=== PATIENT | female | born 1965 | race Caucasian/White ===

== ENCOUNTER 2018-12-31 01:39 | Inpatient (IN) ==
--- NOTE | 2018-12-22 08:36 | EKG Report ---
Test Performed on : 12/22/2018 08:32:23 AM Test Reason : pat Blood Pressure : / mmHG Vent. Rate : 085 BPM Atrial Rate : 085 BPM P-R Int : 142 ms QRS Dur : 082 ms QT Int : 380 ms P-R-T Axes : 064 057 165 degrees QTc Int : 452 ms Normal sinus rhythm. Moderate voltage criteria for LVH, may be normal variant T wave abnormality, consider inferolateral ischemia Abnormal ECG No previous ECGs available Unconfirmed Result
[2018-12-22 09:09] LABS: HEMATOCRIT 49.5 % (37.0-47.0); HEMOGLOBIN 15.8 g/dL (12.0-16.0); MCH 29.9 PG (27-31); MCHC 31.9 g/dL (33-37); MCV 93.8 FL (81-99); MPV 9.8 FL (7.4-10.4); RBC 5.28 XMIL (4.2-5.4); RDW 13.9 % (11.5-14.5); WBC 14.18 X1000 (4.8-10.8)
[2018-12-22 09:57] LABS: AGAP 16; BUN 15 mg/dL (8-22); CHLORIDE 100 mmol/L (98-107); COSMO 282; CREATININE 0.8 mg/dL (0.5-0.9); GLUCOSE 128 mg/dL (70-104); POTASSIUM 4.5 mmol/L (3.5-5.1); SODIUM 140 mmol/L (136-145); TCO2 24 mmol/L (25-35)
[2018-12-31] MEDS ORDERED: KEFZOL 1 GM/D5W 1 GM/50 ML IVPB ONE (05:41)
[2018-12-31] MEDS ORDERED: LR 1,000 ML ONE (05:41)
[2018-12-31] MEDS ORDERED: NITROGLYCERIN 50 MG/D5W 50 MG/250 ML IV.SOLN ONE (06:30)
[2018-12-31] MEDS ORDERED: XYLOCAINE 1%/EPI 1:100,000 ONE (06:33)
[2018-12-31] MEDS ORDERED: HEPARIN ONE (06:36)
[2018-12-31] MEDS ORDERED: XYLOCAINE 1% ONE (06:36)
[2018-12-31] MEDS ORDERED: NS 500 ML ONE (06:36)
[2018-12-31] MEDS ORDERED: KEFZOL ONE (06:36)
[2018-12-31] MEDS ORDERED: NS 1,000 ML ONE (06:37)
[2018-12-31] MEDS ORDERED: VERSED ONE (06:41)
[2018-12-31] MEDS ORDERED: QUELICIN (DOSE) ONE (06:42)
[2018-12-31] MEDS ORDERED: DIPRIVAN 1% ONE (06:43)
[2018-12-31] MEDS ORDERED: XYLOCAINE-MPF 2% ONE (06:57)
[2018-12-31] MEDS ORDERED: NEO-SYNEPHRINE ONE (06:57)
[2018-12-31] MEDS ORDERED: ZEMURON ONE (07:05)
[2018-12-31] MEDS ORDERED: HEPARIN (DOSE) ONE (07:32)
[2018-12-31] MEDS ORDERED: FENTANYL ONE (08:11)
[2018-12-31] MEDS ORDERED: DECADRON ONE (08:13)
[2018-12-31] MEDS ORDERED: ZOFRAN ONE (08:13)
[2018-12-31] MEDS ORDERED: ROBINUL ONE (08:15)
[2018-12-31] MEDS ORDERED: NEOSTIGMINE ONE (08:17)
[2018-12-31] MEDS ORDERED: DUONEB (A & A) INH ONE (08:58)
[2018-12-31] MEDS ORDERED: OFIRMEV 1000 MG/ISOTONIC SOLN 1,000 MG/100 ML BOTTLE ONE (09:23)
[2018-12-31] MEDS ORDERED: ZOFRAN IV PRN (10:32)
[2018-12-31] MEDS ORDERED: ASPIRIN PO SCH (10:32)
[2018-12-31] MEDS: LR 1,000 ML IV SCH ×2 (10:35→23:54)
[2018-12-31] MEDS: ASPIRIN PO SCH (11:35)
[2018-12-31] MEDS: ULTRAM PO PRN ×2 (11:35→21:05)
[2018-12-31] MEDS: CRESTOR PO SCH (11:35)
--- NOTE | 2018-12-31 14:23 | OPERATIVE NOTE ---
PROCEDURE DATE: 12/31/2018 PROCEDURE PERFORMED: Left carotid endarterectomy with patch angioplasty. SURGEON: German Cortes MD. VB NET DEVELOPER: Dr. Roger. PREOPERATIVE DIAGNOSIS: High-grade left internal carotid stenosis. POSTOPERATIVE DIAGNOSIS: High-grade left internal carotid stenosis. DESCRIPTION OF PROCEDURE: Satisfactory general endotracheal anesthesia was achieved. The left side of the neck was prepped and draped in a sterile fashion. We marked the skin in the skin line. We anesthetized the skin 0.25 Marcaine. We then incised the skin and the area anesthetized. We achieved satisfactory hemostasis with electrocautery along the course of the subcutaneous tissue. We then divided the platysma. We then dissected along the anterior border of the sternocleidomastoid muscle. We placed a Gelpi retractor. We identified the common carotid artery surrounded with an umbilical tape. The branches were identified. The external carotid was surrounded with a large vessel loop. A small vessel loop was placed around the superior thyroid. A small vessel loop was placed around the internal carotid. 5000 units of heparin were given. Small crossing veins were ligated and divided. We took care to avoid injury to the hypoglossal nerve. After the heparin had circulated for more than 5 minutes, we then occluded flow in the branch vessels with the vessel loops and clamped off the common. Under 2.5 loupe magnification, we incised the common with 11 blade and extended with the Schultz scissors through the very tight stenosis at the takeoff of the internal. We placed 4 to 3 mm shunt. Smaller end going in the internal, and the larger end going in the common. This was clamped times 2 minutes. We then raised the plaque out of the common, and transected it with the Schultz scissors. We used a [place] tool to first dissect it out of the external as an eversion technique and then out of the internal with a nice taper point distally. We irrigated out the endarterectomized vessel, and removed all leaflets that we could identify. We then used a 1 x 6 bovine patch, and sutured it to the artery with a 6-0 Prolene stitch. As we neared completion of the patch angioplasty, we back bled the external. We then removed the shunt from the internal and back bled it, removed the shunt from the common and fore bled it. We then clamped off the vessels once again. We finished the patch angioplasty, and then held the internal occluded while we opened the external and then the common, and then opened the internal. A couple of bleeding points required extra for a 6-0 prolene [id number] stitches to achieve complete hemostasis of the patch angioplasty. Some Ultrafoam was used as well. Complete hemostasis was achieved. We irrigated out the wound with Kefzol- impregnated saline. We placed a Kenrick drain within the wound and secured it to the skin with 2-0 silk. Once again, injected 0.25 Marcaine into the subcutaneous tissue. We then closed the platysma with a 3-0 Polysorb running, and closed the skin with a 4-0 Polysorb subcuticular stitch. Sterile dressings were applied. She tolerated the procedure well, and was awakened at the time of this dictation. cc: German Cortes MD
[2018-12-31] MEDS: OFIRMEV 1000 MG/ISOTONIC SOLN 1,000 MG/100 ML BOTTLE IV SCH ×2 (15:08→21:05)
[2018-12-31] MEDS: GLUCOPHAGE PO SCH (17:11)
[2018-12-31] MEDS ORDERED: APRESOLINE IV ONE (23:24)
[2019-01-01] MEDS: ULTRAM PO PRN ×3 (03:30→17:03)
[2019-01-01] MEDS: OFIRMEV 1000 MG/ISOTONIC SOLN 1,000 MG/100 ML BOTTLE IV SCH ×2 (03:31→10:59)
[2019-01-01] MEDS: PRINIVIL PO SCH ×2 (05:10→08:58)
[2019-01-01] MEDS ORDERED: LR 1,000 ML IV SCH (06:33)
[2019-01-01] MEDS: CRESTOR PO SCH (08:58)
[2019-01-01] MEDS: GLUCOPHAGE PO SCH ×2 (08:59→16:56)
[2019-01-01] MEDS: ASPIRIN PO SCH (08:59)
--- NOTE | 2019-01-01 13:12 | GENERAL SURGERY PROGRESS NOTE ---
DATE: 01/01/2019 SUBJECTIVE: She is postoperative day 1 after left carotid endarterectomy. She is doing generally well. OBJECTIVE: She is awake and alert. She is neurologically intact. Her trachea is midline. There is no significant hematoma of the neck. Heart rate 84. Blood pressure 173/89. Sugars are in the low 100s. PLAN: The plan today is to remove her arterial line, remove her drain. We will advance her diet and move her out to a regular room. She will be back on her usual antihypertensives. cc: German Cortes MD
[2019-01-01 15:08] VITALS: BP 182/84
--- NOTE | 2019-01-01 22:04 | GENERAL SURGERY PROGRESS NOTE ---
DATE: 01/01/2019 Ms. Casillas is sitting up. She is doing fine. She is eating. Her hemodynamics are okay. Neurologically, she is fine. Her voice is a bit hoarse, but she has no neurologic deficit. We will allow her to go home. We discussed wound care and activity. She is to take her aspirin at home. She will return to see me in the office in a week. cc: German Cortes MD
== END 2019-01-01 19:41 | disposition home or self-care (01) | DRG 39 ==
LOC: SURHOLD 01:39 → ICU 10:29 → 4N 01-01 09:27
PROVIDERS: ADMIT Surgery; ATTEND Surgery

== ENCOUNTER 2019-03-10 02:25 | Inpatient (IN) ==
[2019-03-03 09:31] LABS: HEMATOCRIT 45.4 % (37.0-47.0); HEMOGLOBIN 14.4 g/dL (12.0-16.0); MCH 30.6 PG (27-31); MCHC 31.7 g/dL (33-37); MCV 96.6 FL (81-99); MPV 9.6 FL (7.4-10.4); RBC 4.7 XMIL (4.2-5.4); RDW 16.2 % (11.5-14.5); WBC 13.99 X1000 (4.8-10.8)
[2019-03-03 09:56] LABS: AGAP 12; BUN 13 mg/dL (8-22); CALCIUM 10.1 mg/dL (8.8-10.2); CHLORIDE 104 mmol/L (98-107); COSMO 281; CREATININE 0.7 mg/dL (0.5-0.9); ESTIMATED GFR > 60; GLUCOSE 134 mg/dL (70-104); POTASSIUM 4.5 mmol/L (3.5-5.1); SODIUM 140 mmol/L (136-145); TCO2 24 mmol/L (25-35)
[2019-03-10] MEDS ORDERED: NORCURON ONE (08:29)
[2019-03-10] MEDS ORDERED: SODIUM CHLORIDE 0.9% 10 ML ONE ×2 (08:29→09:39)
[2019-03-10] MEDS ORDERED: XYLOCAINE-MPF 2% ONE (08:39)
[2019-03-10] MEDS ORDERED: VERSED ONE (08:39)
[2019-03-10] MEDS ORDERED: FENTANYL ONE ×2 (08:41→14:03)
[2019-03-10] MEDS ORDERED: NITROGLYCERIN 50 MG/D5W 50 MG/250 ML IV.SOLN ONE (09:27)
[2019-03-10] MEDS ORDERED: NEO-SYNEPHRINE ONE (09:30)
[2019-03-10] MEDS ORDERED: PEPCID ONE (11:09)
[2019-03-10] MEDS ORDERED: REGLAN ONE (11:09)
[2019-03-10] MEDS ORDERED: KEFZOL 1 GM/D5W 1 GM/50 ML IVPB ONE (11:09)
[2019-03-10] MEDS ORDERED: LR 1,000 ML ONE (11:09)
[2019-03-10] MEDS ORDERED: DUONEB (A & A) INH ONE (11:13)
[2019-03-10] MEDS ORDERED: KEFZOL ONE (11:44)
[2019-03-10] MEDS ORDERED: HEPARIN ONE (11:44)
[2019-03-10] MEDS ORDERED: NS 500 ML ONE (11:45)
[2019-03-10] MEDS ORDERED: XYLOCAINE 1% ONE (11:45)
[2019-03-10] MEDS ORDERED: NS 1,000 ML ONE (11:45)
[2019-03-10] MEDS ORDERED: RECOTHROM ONE (11:47)
[2019-03-10] MEDS ORDERED: QUELICIN (DOSE) ONE (12:29)
[2019-03-10] MEDS ORDERED: DIPRIVAN 1% ONE (12:38)
[2019-03-10] MEDS ORDERED: OFIRMEV 1000 MG/ISOTONIC SOLN 1,000 MG/100 ML BOTTLE ONE (13:09)
[2019-03-10] MEDS ORDERED: HEPARIN (DOSE) ONE (13:11)
[2019-03-10] MEDS ORDERED: EPHEDRINE ONE (13:11)
[2019-03-10] MEDS ORDERED: MARCAINE 0.25% PF ONE (13:16)
[2019-03-10] MEDS ORDERED: ZOFRAN ONE (13:41)
[2019-03-10] MEDS: XYLOCAINE 1%/EPI 1:100,000 ONE ×2 (14:21→14:22)
[2019-03-10] MEDS ORDERED: ROBINUL ONE (14:23)
[2019-03-10] MEDS ORDERED: NEOSTIGMINE ONE (14:24)
[2019-03-10] MEDS ORDERED: LABETALOL (DOSE) ONE ×2 (14:27→14:31)
[2019-03-10] MEDS: LR 1,000 ML IV SCH (16:22)
[2019-03-10] MEDS: GLUCOPHAGE PO SCH (17:16)
[2019-03-10] MEDS: OFIRMEV 1000 MG/ISOTONIC SOLN 1,000 MG/100 ML BOTTLE IV SCH ×2 (17:48→23:06)
--- NOTE | 2019-03-10 19:50 | OPERATIVE NOTE ---
PROCEDURE DATE: 03/10/2019 OPERATION: Right carotid endarterectomy with patch angioplasty. SURGEON: German Cortes MD. JOINERY SETTER OUT: MD Janak. PREOPERATIVE DIAGNOSIS: High-grade right internal carotid stenosis. POSTOPERATIVE DIAGNOSIS: High-grade right internal carotid stenosis. DESCRIPTION OF PROCEDURE: After satisfactory general endotracheal anesthesia was achieved, the right side of the neck was prepped and draped in a sterile fashion. The patient was placed in a gentle reverse Trendelenburg position. We chose a skin line and anesthetized it with 1% lidocaine with epinephrine. We incised in the skin line and carried our incision through the subcutaneous tissue, through the platysma, and then dissected along the anterior border of the sternocleidomastoid muscle. We identified the common carotid and surrounded it with an umbilical tape, and 5000 units of heparin were given. We then dissected the bulb and the external carotid. We surrounded the external carotid and the superior thyroid with a large vessel loop. We then dissected along the internal carotid. Small crossing veins were ligated and divided, and additionally clipped. One rather large vein was ligated and divided to give better exposure to the more superior internal carotid artery. It was surrounded with a small vessel loop. The hypoglossal nerve was identified and protected from harm. After the heparin had circulated for more than 5 minutes, we then occluded flow in the external with a vessel loop. We clamped off the common with an angled DeBakey clamp. We used a profunda clamp on the internal. Under 2.5 loupe magnification, we then incised the common, extended it with the Schultz scissors. There was a significant stenosis further up into the internal. The plaque actually went quite a ways into the internal. We then introduced the 4 to 3 mm Sundt shunt, the smaller end going in the internal and the larger end going in the common. The clamp time was about 2 minutes. Then, under 2.5 loupe magnification, we raised the plaque out of the common and transected it with the Schultz scissors. We used a [place] then to continue to dissect the plaque from the artery. We did an eversion endarterectomy of the external and then continued dissecting in the internal to end of the plaque which was right at the very distal extent of our incision. We irrigated out the plaque, removed all leaflets we could identify. We then obtained a 1 x 6 patch that had been soaked appropriately. We then constructed the patch angioplasty with a 6-0 Prolene running stitch. As we neared completion of the patch angioplasty, we back bled the external, removed the shunt from the internal, and clamped it off once again with a profunda clamp. We then removed the shunt from the common and flushed the common. We finished the patch angioplasty. We held the internal occluded, opened the external, then the common, and then opened the internal after 5 seconds. We had to re-clamp additionally a couple of times in order to place some additional 6-0 Prolene stitches to achieve complete hemostasis of the patch angioplasty. We did accomplished that. We then irrigated out the wound with Kefzol-impregnated saline. We placed a Kenrick drain within the wound. A good pulse was noted within the distal internal. There was no evidence of dissection. We then secured the drain at the skin level with a 2-0 silk. We closed the platysma with a running 3-0 Polysorb. We then used 0.25 Marcaine plain to add additional local incisional anesthetic. We then closed the skin with a 4-0 Polysorb subcuticular stitch. A sterile dressing was applied. The patient tolerated the procedure satisfactorily, was awake at the time of this dictation. cc: German Cortes MD
--- NOTE | 2019-03-10 22:43 | GENERAL SURGERY PROGRESS NOTE ---
DATE: 03/10/2019 SUBJECTIVE: She is awake and alert and neurologically she is fine. Her trachea is midline. No significant hematoma was present. We will advance her to clear liquids tonight. Her hemodynamics are good as well. cc: German Cortes MD
[2019-03-10] MEDS: ULTRAM PO PRN (22:47)
[2019-03-10] MEDS: ZOFRAN IV PRN (22:52)
[2019-03-11] MEDS: LR 1,000 ML IV SCH (01:11)
[2019-03-11] MEDS: ULTRAM PO PRN ×2 (04:51→12:53)
[2019-03-11] MEDS: OFIRMEV 1000 MG/ISOTONIC SOLN 1,000 MG/100 ML BOTTLE IV SCH ×2 (05:01→17:01)
[2019-03-11] MEDS ORDERED: LR 1,000 ML IV SCH (07:07)
[2019-03-11] MEDS: ASPIRIN PO SCH (08:13)
[2019-03-11] MEDS: GLUCOPHAGE PO SCH ×2 (08:13→17:44)
[2019-03-11] MEDS: CRESTOR PO SCH (08:13)
[2019-03-11] MEDS ORDERED: ASPIRIN PO SCH (09:00)
[2019-03-11] MEDS: PRINZIDE 10/12.5MG PO SCH (10:30)
--- NOTE | 2019-03-11 12:07 | GENERAL SURGERY PROGRESS NOTE ---
DATE: 03/11/2019 She is postop day 1 after right carotid endarterectomy. She is awake and alert. She is doing generally well. Neurologically she is fine. Her trachea is in the midline. No significant hematoma was present. She has had very minimal drainage out her drain. Heart rate is 76, blood pressure is 125/54. Today, we will remove her drain. We will remove her arterial line. Advance her diet. Transfer out to a regular room. cc: German Cortes MD MTDD
[2019-03-11] MEDS: ZOFRAN IV PRN (12:55)
[2019-03-12] MEDS: ULTRAM PO PRN (06:32)
[2019-03-12 07:54] VITALS: BP 174/84
[2019-03-12] MEDS: ASPIRIN PO SCH (08:27)
[2019-03-12] MEDS: GLUCOPHAGE PO SCH (08:27)
[2019-03-12] MEDS: CRESTOR PO SCH (08:28)
[2019-03-12] MEDS: PRINZIDE 10/12.5MG PO SCH (08:28)
--- NOTE | 2019-03-12 14:53 | GENERAL SURGERY PROGRESS NOTE ---
DATE: 03/12/2019 SUBJECTIVE: Ms. Casillas is doing generally well. OBJECTIVE: Vital Signs: She is afebrile, heart rate 83, blood pressure 161/72. Neurologic: She is fine. She has minimal tongue weakness. Neck: Her trachea is in midline. Skin: Her wound looks fine. No significant hematoma. PLAN: Discharge today. She will return to see me in the office in a week. She will resume her usual medicines. cc: German Cortes MD
== END 2019-03-12 08:38 | disposition home or self-care (01) | DRG 39 ==
LOC: SURHOLD 02:25 → ICU 16:10 → 4N 03-11 11:30
PROVIDERS: ADMIT Surgery; ATTEND Surgery